=== PATIENT | female | born 1985 | race African-American/Black ===

== ENCOUNTER 2016-07-23 22:50 | Emergency (ER) | payer OTHER ==
[~2016-07-23] VITALS: Ht 165.1 cm; Wt 61.2 kg
[2016-07-23 22:50] VITALS: BP 143/87
[~2016-07-23 22:50] MED LIST: APAP500; BACTRIM DS TAB1 EACH PO; DERMOPLAST SPRA56 ML; DIPHENHYDRAMINE25 M3 PO; DOXYCYCLINE 10100 M1 PO; IBUPROFEN 600600 M1; IBUPROFEN 600600 M1 PO; IRON325; IRON325 PO; LABETALOL 100100 MG PO; METHYLERGONOVI0.2 MG PO; NOHOMEMEDICATIONS; NORCO 5-325 TA1 EACH PO; PHENERGAN 25 MG25 M1 PO; PHENERGAN25 M2 RC; PRENATAL MULTI1 EAC2; PRENATAL PO; PYRIDIUM100 MG PO; RANITIDINE 150150 MG; REGLAN 10 MG TA10 MG PO; SENNA; TUCKS MEDICATE1 EAC1; ZANTAC 150MG T150 M1 PO; ZOFRAN; ZOFRAN4 MG PO
[2016-07-23 23:06] LABS: URINE BILIRUBIN NEGATIVE (Negative); URINE BLOOD 1+ (Negative); URINE COLOR YELLOW; URINE GLUCOSE-RANDOM* NEGATIVE (Negative); URINE KETONES NEGATIVE (Negative); URINE NITRITE NEGATIVE (Negative); URINE PROTEIN (DIPSTICK) NEGATIVE (Negative); URINE SPECIFIC GRAVITY 1.025 (1.003-1.035)
[2016-07-23 23:22] LABS: SQUAMOUS >10 Many /LPF (0-3)
[2016-07-23 23:23] LABS: BACTERIA 1-9 Few /HPF (None Seen); CASTS None Seen /LPF (None Seen); CRYSTALS None Seen /LPF (None Seen); URINE RBC 3-10 Few /HPF (0-2); URINE WBC 0-5 Rare /HPF (0-5)
[2016-07-23] MEDS ORDERED: FLAGYL500 MG PO (23:29)
== END 2016-07-23 23:53 | disposition home or self-care (01) ==
LOC: ER 22:50
PROVIDERS: Physician Assistant
DX: N76.0 Acute vaginitis (principal)